=== PATIENT | female | born 1945 | race Caucasian/White ===

== ENCOUNTER 2016-08-30 07:23 | Day surgery (SDC) | payer MEDICARE, SELFPAY ==
[~2016-08-30] VITALS: Ht 162.6 cm; Wt 101.8 kg
[2016-09-07] MEDS ORDERED: COZAAR DPS25 MG PO (12:52)
[2016-09-07] MEDS ORDERED: GLIMEPIRIDE4 MG PO (12:52)
[2016-09-07] MEDS ORDERED: MONTELUKAST SOD10 MG PO (12:52)
[2016-09-07] MEDS ORDERED: ZYRTEC DPS10 MG PO (12:53)
[2016-09-07] MEDS ORDERED: FLOVENT 44MCG10.6 GM NS (12:53)
[2016-09-07] MEDS ORDERED: PROTONIX40 M2 PO (12:53)
[2016-09-07] MEDS ORDERED: LYRICA150 MG PO (12:54)
[2016-09-07] MEDS ORDERED: ULTRAM DPS50 MG PO (12:54)
[2016-09-07] MEDS ORDERED: CYMBALTA DPS60 MG PO (12:54)
[2016-09-07] MEDS ORDERED: TYLENOL ARTHRI650 MG PO (12:55)
[2016-09-07] MEDS ORDERED: MULTIVITAMINS1 EAC1 PO (12:55)
[2016-09-07] MEDS ORDERED: VITAMIN D31000 UNIT PO (12:56)
[2016-09-07] MEDS ORDERED: CALCIUM 600 +1 EAC6 PO (12:57)
[2016-09-07] MEDS ORDERED: NITROSTAT0.4 MG SL (12:57)
[2016-09-07] MEDS ORDERED: ASPIR 8181 MG PO (12:57)
[2016-09-07] MEDS ORDERED: IMODIUM DPS2 MG PO (12:57)
[2016-09-07] MEDS ORDERED: COLACE-DPS100 MG PO (12:58)
[2016-09-07] MEDS ORDERED: CELEXA DPS20 MG PO (12:58)
[2016-09-07] MEDS ORDERED: PROVENTIL2.5 MG/3 M IH (12:58)
[2016-09-07] MEDS ORDERED: MILK OF MAGNESI10 ML PO (12:59)
[2016-09-07] MEDS ORDERED: SENOKOT S1 TAB PO (12:59)
[2016-09-07] MEDS ORDERED: PERCOCET 5-3251 EACH PO (12:59)
[2016-09-07] MEDS ORDERED: VALIUM5 MG PO (13:00)
[2016-09-23] MEDS ORDERED: SINGULAIR10 MG PO (11:54)
[2016-09-23] MEDS ORDERED: COZAAR DPS25 MG PO (11:54)
[2016-09-23] MEDS ORDERED: AMARYL4 MG PO (11:54)
[2016-09-23] MEDS ORDERED: DULOXETINE PO (11:54)
[2016-09-23] MEDS ORDERED: SENOKOT S1 TAB PO (11:55)
[2016-09-23] MEDS ORDERED: TESSALON PERLE100 M1 PO (11:55)
[2016-09-23] MEDS ORDERED: MOBIC15 MG PO (11:55)
[2016-09-23] MEDS ORDERED: BACITRACIN--O.0.9 GM TP (11:56)
[2016-09-23] MEDS ORDERED: IMODIUM DPS2 MG PO (11:56)
[2016-09-23] MEDS ORDERED: LYRICA150 MG PO (11:57)
[2016-09-23] MEDS ORDERED: PROAIR HFA8.5 GM IH (11:57)
[2016-09-23] MEDS ORDERED: NORCO 5-325 TA1 EACH PO (11:58)
[2016-09-23] MEDS ORDERED: CIPROFLOXACIN500 M1 PO (11:59)
== END 2016-08-30 10:50 | disposition home or self-care (01) ==
LOC: UNDOADMIN 07:23 → SSS 07:23 → WOR 07:23 → EDSTATUS 08:17 → SSS 10:50
DX: M48.02 Spinal stenosis, cervical region (principal); Z53.8 Procedure and treatment not carried out for other reasons; J45.909 Unspecified asthma, uncomplicated; I25.2 Old myocardial infarction; I10 Essential (primary) hypertension; I25.10 Atherosclerotic heart disease of native coronary artery without angina pectoris; K21.9 Gastro-esophageal reflux disease without esophagitis; G47.30 Sleep apnea, unspecified; E66.9 Obesity, unspecified; E11.9 Type 2 diabetes mellitus without complications; Z88.5 Allergy status to narcotic agent; Z88.8 Allergy status to other drugs, medicaments and biological substances; Z90.710 Acquired absence of both cervix and uterus; Z95.1 Presence of aortocoronary bypass graft; Z79.899 Other long term (current) drug therapy

== ENCOUNTER 2016-09-03 08:56 | Inpatient (IN) | payer MEDICARE, SELFPAY ==
[~2016-09-03] VITALS: Ht 162.6 cm; Wt 100.5 kg
--- NOTE | ~2016-09-03 | DS ---
ADMIT: 09/03/2016 RM/LOC: 508 [facility] MR#: [id number] [facility]#: [id number] 2620 [facility] [address] [place] [address] CHAYITO SIFUENTES [address] [place] [address] General Discharge Summary SEX: F AGE: 71 : 1945 ADMISSION DATE: 09/03/2016 DISCHARGE DATE: 09/06/2016 REASON FOR ADMISSION: Congenital cervical spinal stenosis. PROCEDURE: Posterior cervical laminectomy and fusion at cervical 3 through 7. HOSPITAL COURSE: Ms. Sifuentes tolerated her procedure well. Postoperatively, she was taken to the med/surg floor for monitoring and care. She did refuse removal of her Mccarty catheter due to her pain. Postop day #1, she did agree to have her Mccarty catheter removed. She was awake and alert. She was moving all extremities x4 with increased strength and her foundry process engineer was 4+/5. Her vital signs were stable. Her incision was clean, dry, and intact. Her MARCELA drain was patent with serosanguineous drainage. She did work with Physical Therapy and Occupational Therapy and tolerated this quite well. Postop day #2, she was awake and alert. She was afebrile and her vital signs were stable. She was moving all extremities x4 with 5/5 strength. Her wound was clean, dry, and intact. Her MARCELA drain was removed without difficulty. Postop day #3, she had no complaints. Her vital signs were stable. She was awake, alert, and oriented x4. She was moving all extremities x4 with 5/5 strength. Her incision was clean, dry, and intact and no hematoma or cerebrospinal fluid accumulation was noted. She was ambulating, urinating, and defecating per her norm, and was requesting discharge home. DISCHARGE CONDITION: Good. MEDICATIONS: 1. Colace 100 mg p.o. b.i.d. 2. Milk of magnesia 10 mL p.o. q.a.m. 3. Senokot one tab p.o. b.i.d. 4. Imodium 2 mg p.o. q.6 hours p.r.n. 5. Percocet 5 one to two p.o. q.4 hours p.r.n. 6. Tylenol 650 mg p.o. q.4 hours p.r.n. 7. Valium 5 mg one to two p.o. q.8 hours p.r.n. 8. Glimepiride 4 mg daily. 9. Montelukast 10 mg daily. 10.Losartan 25 mg daily. 11.Pantoprazole 40 mg daily. 12.Cetirizine 10 mg daily. 13.Fluticasone 50 mcg two sprays daily. 14.Lyrica 150 mg b.i.d. 15.Duloxetine 60 mg b.i.d. 16.Tramadol 50 mg daily. 17.Multivitamin daily. 18.Vitamin D3 of 5000 units daily. 19.Calcium with vitamin D two tablets b.i.d. 20.Nitrostat 0.4 mg q.5 x 3 p.r.n. 21.Aspirin 81 mg daily. 22.Celexa 20 mg daily. ADMIT: 09/03/2016 RM/LOC: 508 [facility] MR#: [id number] [address] [address] [facility] [place] [address] General Discharge Summary SEX: F AGE: 71 : 1945 23.Albuterol nebulizer q.i.d. p.r.n. 24.Ventolin inhaler two puffs q.4 hours p.r.n. DISCHARGE INSTRUCTIONS: Per Dr. Nazario: She can have a diabetic diet. She may shower, she should not take any tub baths, she should pat her incision dry. She should not lift anything greater than 15 pounds. She should not take any NSAIDs. She should not drive until she is seen in clinic. She should wear her cervical collar at all times when out of bed. She may remove the collar to shower. She will call if she has any questions or concerns including neurological worsening, signs or symptoms of infection, or any other issues. FOLLOWUP: She will follow up with Sanjana in clinic in 2 weeks. DISPOSITION: She was discharged home. Total [id number] time for the discharge planning care and coordination was 30 minutes. Sanjana Marti APRN / Sabino Nazario MD / jason JOB #: [id number] CC: Sabino Nazario MD, Attending Physician Harry Goff MD, Family Physician
--- NOTE | 2016-09-06 07:36 | OR ---
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 PROCEDURE: 1. Cervical laminectomy in an en block fashion with wide laminectomy and foraminotomy for decompression at cervical C3-C4, C4-C5, C5-C6, and C6- C7. 2. Posterior lateral mass screw placement at cervical C3-C4, C5-C6, and C7 utilizing [employer] instrumentation with segmental hardware. 3. [place] of autograft through same incision with morcellation and reimplantation to the posterolateral recesses for posterolateral arthrodesis cervical C3-C4, C4-C5, C5-C6, and C6-C7. 4. Intraoperative use of fluoroscopy with physician interpretation of film. 5. Intraoperative neuromonitoring with no change from baseline at the beginning of the case. EMERGENCY DEPARTMENT: Sanjana Marti APRN. Ms. Marti assisted with suction and retraction, and closure at the end of the case. DESCRIPTION OF PROCEDURE: After gaining informed consent, the patient was taken to the operative theater, and placed under general endotracheal anesthesia in a supine position and turned prone on a Christopher table. All pressure points were purposely padded prior to performing the procedure. She was in the Stuart insulation board head saw operator and very cautiously clamped to the table under 80 pounds of pressure. A time-out was utilized to ascertain the correct site and side of surgery as well as other pertinent patient historical information. Counts obtained at the beginning and at the end of the case with no change betwixt to 2. Antibiotics were given within 1 hour of incision. The posterior neck in a longitudinal fashion was incised. This was then taken down through the nuchal fascia, subperiosteally dissecting off the bifida spinous processes, lamina, and out over the lateral masses at cervical C3, C4, C5, C6, and C7 being cautious not to interrupt the cervical C2-C3 joint space nor the cervical C7 thoracic T1 joint space. Once this was completed, attention was turned to the instrumentation. A 1 mm inferomedial to the geographic center of the lateral masses at cervical C3, C4, C5, C6, and C7 was decorticated and then hand-drilled to 12 mm sounding this and ensuring bony anatomy. Once this was completed at the aforementioned levels, vancomycin powder coated screws were then implanted. There was no sign of complication at this point. ADMIT: 09/03/2016 RM/LOC: 508 [facility] MR#: [id number] [address] [place], [place] [id number] [place], [place] [address] [address] Operative/Delivery Room Report SEX: F AGE: 71 : 1945 The high-speed drill was then used to drill out the laminofacet junction and drill into the facets area for the paetl-hole foraminotomy component, doing this very widely, longitudinally C3, C4, C5, C6 and down to C6-C7 taken off C7 as well. This was done bilaterally and this was then able to be removed in an en bloc fashion for morcellation and reimplantation later. Pristine hemostasis was obtained. The rods and carmita set screws and cross connectors were then implanted with no sign of complication. The morcellated autograft was placed in the posterolateral area after decortication both at the facets as well as laterally to allow for fusion substrate. Once this was completed, further hemostasis was obtained. A MARCELA drain was daylighted out and the wound was closed with simple running 0 Ethibond in the nuchal fascia, simple inverted interrupted 2-0 Vicryl in the hypodermic tissue and simple running Monocryl on the skin. COMPLICATIONS: None. ESTIMATED BLOOD LOSS: Charted. SPECIMEN: None. DISPOSITION: Extubated and taken to postanesthesia care unit. Sabino Nazario MD/ jason JOB #: [id number] CC: Sabino Nazario, Attending Physician Harry Goff, Family Physician
[2016-09-07] MEDS ORDERED: COZAAR DPS25 MG PO (12:52)
[2016-09-07] MEDS ORDERED: GLIMEPIRIDE4 MG PO (12:52)
[2016-09-07] MEDS ORDERED: MONTELUKAST SOD10 MG PO (12:52)
[2016-09-07] MEDS ORDERED: ZYRTEC DPS10 MG PO (12:53)
[2016-09-07] MEDS ORDERED: PROTONIX40 M2 PO (12:53)
[2016-09-07] MEDS ORDERED: FLOVENT 44MCG10.6 GM NS (12:53)
[2016-09-07] MEDS ORDERED: CYMBALTA DPS60 MG PO (12:54)
[2016-09-07] MEDS ORDERED: LYRICA150 MG PO (12:54)
[2016-09-07] MEDS ORDERED: ULTRAM DPS50 MG PO (12:54)
[2016-09-07] MEDS ORDERED: TYLENOL ARTHRI650 MG PO (12:55)
[2016-09-07] MEDS ORDERED: MULTIVITAMINS1 EAC1 PO (12:55)
[2016-09-07] MEDS ORDERED: VITAMIN D31000 UNIT PO (12:56)
[2016-09-07] MEDS ORDERED: IMODIUM DPS2 MG PO (12:57)
[2016-09-07] MEDS ORDERED: CALCIUM 600 +1 EAC6 PO (12:57)
[2016-09-07] MEDS ORDERED: NITROSTAT0.4 MG SL (12:57)
[2016-09-07] MEDS ORDERED: ASPIR 8181 MG PO (12:57)
[2016-09-07] MEDS ORDERED: COLACE-DPS100 MG PO (12:58)
[2016-09-07] MEDS ORDERED: CELEXA DPS20 MG PO (12:58)
[2016-09-07] MEDS ORDERED: PROVENTIL2.5 MG/3 M IH (12:58)
[2016-09-07] MEDS ORDERED: PERCOCET 5-3251 EACH PO (12:59)
[2016-09-07] MEDS ORDERED: MILK OF MAGNESI10 ML PO (12:59)
[2016-09-07] MEDS ORDERED: SENOKOT S1 TAB PO (12:59)
[2016-09-07] MEDS ORDERED: VALIUM5 MG PO (13:00)
[2016-09-23] MEDS ORDERED: SINGULAIR10 MG PO (11:54)
[2016-09-23] MEDS ORDERED: DULOXETINE PO (11:54)
[2016-09-23] MEDS ORDERED: COZAAR DPS25 MG PO (11:54)
[2016-09-23] MEDS ORDERED: AMARYL4 MG PO (11:54)
[2016-09-23] MEDS ORDERED: MOBIC15 MG PO (11:55)
[2016-09-23] MEDS ORDERED: SENOKOT S1 TAB PO (11:55)
[2016-09-23] MEDS ORDERED: TESSALON PERLE100 M1 PO (11:55)
[2016-09-23] MEDS ORDERED: IMODIUM DPS2 MG PO (11:56)
[2016-09-23] MEDS ORDERED: BACITRACIN--O.0.9 GM TP (11:56)
[2016-09-23] MEDS ORDERED: LYRICA150 MG PO (11:57)
[2016-09-23] MEDS ORDERED: PROAIR HFA8.5 GM IH (11:57)
[2016-09-23] MEDS ORDERED: NORCO 5-325 TA1 EACH PO (11:58)
[2016-09-23] MEDS ORDERED: CIPROFLOXACIN500 M1 PO (11:59)
== END 2016-09-06 17:15 | disposition home or self-care (01) | DRG 473 ==
LOC: 5MS 08:56 → WOR 08:56 → 5MS 13:48
PROVIDERS: ADMIT Neurological Surgery
PROC: 0RG2071 Fusion of 2 or more Cervical Vertebral Joints with Autologous Tissue Substitute, Posterior Approach, Posterior Column, Open Approach (ICD-10-PCS; principal; 2016-09-03)
DX: M47.12 Other spondylosis with myelopathy, cervical region (principal); E11.9 Type 2 diabetes mellitus without complications; I10 Essential (primary) hypertension; J45.909 Unspecified asthma, uncomplicated; I25.10 Atherosclerotic heart disease of native coronary artery without angina pectoris; K21.9 Gastro-esophageal reflux disease without esophagitis; M79.7 Fibromyalgia; E66.9 Obesity, unspecified; Z68.38 Body mass index [BMI] 38.0-38.9, adult; K58.9 Irritable bowel syndrome, unspecified; M47.816 Spondylosis without myelopathy or radiculopathy, lumbar region; G47.33 Obstructive sleep apnea (adult) (pediatric); M19.90 Unspecified osteoarthritis, unspecified site; E55.9 Vitamin D deficiency, unspecified; Z79.82 Long term (current) use of aspirin; Z95.5 Presence of coronary angioplasty implant and graft; Z79.84 Long term (current) use of oral hypoglycemic drugs

== ENCOUNTER 2016-09-13 12:15 | Observation (INO) | payer MEDICARE, SELFPAY ==
[~2016-09-13] VITALS: Ht 162.6 cm; Wt 100.0 kg
--- NOTE | ~2016-09-13 | ER ---
ADMIT: 09/13/2016 RM/LOC: 504 [facility] MR#: [id number] 2620 [facility] [address] [place], [place] [address] [facility] [address] [place] [address] Emergency Room Report SEX: F AGE: 71 : 1945 DATE: 09/13/2016 HISTORY OF PRESENT ILLNESS: A 71-year-old white female coming in after falling. She had a C3-C7 fusion on 09/03/2016. Re-x-ray of her neck shows a C6- C7 lamina fracture nondisplaced. The fusion is intact. At this time, I did speak with Dr. Drummond, and we are going to continue her collar. She has an appointment with Aravind on . She also is neurologically intact. She also had a laceration that was repaired on her right ear, we repaired with Dermabond. Family here explained. We are backing off on some of her medication. Pain medications that she was getting just a little bit, I think she is sleepy with this as described by the family. She is to try her pain medicine, 1 Percocet every 3 hours instead of the 2 every 6. We will see if that works for backing off on her Valium just a little bit, maybe just at bedtime 5, also other help as well. CONDITION ON DISCHARGE: Fair. Jersey Carver MD/ jason JOB #: [id number] CC: Harry Goff MD, Attending Physician Harry Goff MD, Family Physician Sabino Nazario MD
[~2016-09-13 12:15] MED LIST: ASPIR 8181 MG PO; CALCIUM 600 +1 EAC6 PO; CELEXA DPS20 MG PO; COLACE-DPS100 MG PO; COZAAR DPS25 MG PO; CYMBALTA DPS60 MG PO; FLOVENT 44MCG10.6 GM NS; GLIMEPIRIDE4 MG PO; IMODIUM DPS2 MG PO; LYRICA150 MG PO; MILK OF MAGNESI10 ML PO; MONTELUKAST SOD10 MG PO; MULTIVITAMINS1 EAC1 PO; NITROSTAT0.4 MG SL; PERCOCET 5-3251 EACH PO; PROTONIX40 M2 PO; PROVENTIL2.5 MG/3 M IH; SENOKOT S1 TAB PO; TYLENOL ARTHRI650 MG PO; ULTRAM DPS50 MG PO; VALIUM5 MG PO; VITAMIN D31000 UNIT PO; ZYRTEC DPS10 MG PO
--- NOTE | 2016-09-15 15:17 | HP ---
ADMIT: 09/13/2016 RM/LOC: 504 [facility] MR#: [id number] [address] [address] [facility] [address] [place] [address] History and Physical SEX: F AGE: 71 : 1945 DATE OF SERVICE: CHIEF COMPLAINT: Fall, neck pain. HISTORY OF PRESENT ILLNESS: The patient is a 71-year-old female, who recently had neck surgery, cervical fusion at the end of August here. She was at home, had recently had an escalation of her pain medications and Valium. She subsequently fell today, struck her head, gashed her ear, hurt her neck more, presented to the emergency room. The patient otherwise states she has been feeling on and off chills feeling. No rigors per se. No fevers. No new shortness of breath. No chest pain. No nausea or vomiting. Just felt very tired and with a lot of pain recently. No new numbness, tingling, or weakness in extremities. PAST MEDICAL HISTORY: 1. Coronary artery disease. 2. Chronic fibromyalgia. 3. Diabetes type 2, controlled with diet. 4. GERD. 5. Insomnia. 6. IBS. 7. Neuropathy. 8. Osteoarthritis. 9. Obstructive sleep apnea, refusing to wear CPAP. 10.Osteopenia. 11.Chronic shoulder pain. 12.Asthma. 13.Hypertension. MEDICATIONS: Please see list for full details, but she is on: 1. Cymbalta. 2. Glimepiride. 3. Losartan. 4. Montelukast. 5. Meloxicam. 6. Benzonatate. 7. Oxycodone. 8. Docusate. 9. Loperamide. 10.Bacitracin. 11.Diazepam. 12.ProAir. 13.Lyrica. ALLERGIES: SHE IS ALLERGIC TO CIPRO AND MACROBID WELL MORPHINE. FAMILY HISTORY: Significant for mother with Alzheimer's, father with prostate cancer. ADMIT: 09/13/2016 RM/LOC: 504 [facility] MR#: [id number] [address] [address] [facility] [address] [place] [address] History and Physical SEX: F AGE: 71 : 1945 SOCIAL HISTORY: She is a former smoker. Lives at home alone. REVIEW OF SYSTEMS: As per HPI. Otherwise, completely reviewed and negative. PHYSICAL EXAMINATION: VITAL SIGNS: Temperature 99.0, pulse 71, respiratory rate 18, blood pressure 126/68, O2 saturation 95% on 2 L. GENERAL: She is alert and oriented x3, in no acute distress, pleasant. Resting comfortably in bed at this time. HEENT: Normocephalic, atraumatic other than her right ear has a large gash on it and swollen. Pupils are equal bilaterally. No icterus. Dry mucous membranes. NECK: No lymphadenopathy. She has a trach collar on. Trachea midline. LUNGS: Clear to auscultation bilaterally anteriorly. Diminished at bases bilaterally. No rhonchi noted. HEART: Regular rate and rhythm. No murmurs, rubs, or gallops. ABDOMEN: Soft, nontender, nondistended. Bowel sounds present. EXTREMITIES: No cyanosis, clubbing, or edema. MUSCULOSKELETAL: 5/5 strength in all 4 extremities. SKIN: She has no rashes noted. PSYCHIATRIC: She has normal affect. Conversational. LABORATORY AND X-RAY DATA: Creatinine is 0.8, white count 8.6, hemoglobin 12.6, blood glucose 121. Her UA is positive for nitrites and leukocytes. An x-ray has not been done. CT scan of her cervical neck in short shows a nondisplaced fracture of her C7 vertebrae. ASSESSMENT: 1. Cervical C7 fracture. 2. Recent cervical fusion. ADMIT: 09/13/2016 RM/LOC: 504 [facility] MR#: [id number] [address] [address] [facility] [address] [place] [address] History and Physical SEX: F AGE: 71 : 1945 3. Urinary tract infection. 4. Hypertension. 5. Chronic pain. 6. Hypoxia. 7. Obstructive sleep apnea. PLAN: At this point in time, we will best feed her hypoxia. Further, we will get a chest x-ray. We will treat her UTI with oral Bactrim. She will have a PT/OT work with her. Try to get her reasonable pain control without being over sedate. I think she needs placement at this time for ongoing rehab given all of the issues going on with her. We will have Social Work see her for this. Harry Goff MD/ jason JOB #: [id number] CC: Harry Goff, Attending Physician Harry Goff, Family Physician
--- NOTE | 2016-09-17 08:39 | DS ---
ADMIT: 09/13/2016 RM/LOC: 504 [facility] MR#: [id number] [address] [address] [facility] [address] [place] [address] Discharge Summary SEX: F AGE: 71 : 1945 ADMISSION DATE: 09/13/2016 DISCHARGE DATE: 09/14/2016 CONSULTATIONS: None. PROCEDURES: None. FINAL DIAGNOSES: 1. Fall with nondisplaced C7 cervical fracture. 2. Hypertension. 3. Recent cervical fusion. 4. Fibromyalgia. 5. History of coronary artery disease. 6. Diabetes type 2, on oral agents. 7. Gastroesophageal reflux disease. 8. IBS (Irritable bowel syndrome). 9. Neuropathy. 10.Obstructive sleep apnea, refusing to wear CPAP (continuous positive airway pressure). 11.Hypoxia, likely secondary to obstructive sleep apnea. 12.UTI (urinary tract infection). REASON FOR ADMISSION: The patient is a 71-year-old female who fell at home. Had recently had a cervical fusion. She hurt her neck. Lacerated her ear. Was admitted for further stabilization. HOSPITAL COURSE: The patient was admitted. Adjusted her pain medications. Cut them down. Looks like she was overmedicated. Started on medication for UTI. She felt safe and stable but not strong enough to go home. Arrangements were made for custodial. She was then transferred to custodial care. Improved. Neurosurgery had been consulted in the emergency room and they instructed her to wear a collar at all times until sees Dr. Nazario later this week and these were the instructions at discharge. DISCHARGE INSTRUCTIONS: She will discharge over to custodial facility. Discharge medications are per the MAR, please look at them for full details as I reviewed them all. She will follow up with Dr. Nazario as previously planned. Follow up with me in 7-10 days, on September 22 it looks like. Harry J Goff, MD/ armeng JOB #: [id number] CC: Harry Goff MD, Attending Physician Harry Goff MD, Family Physician
--- NOTE | 2016-09-17 12:33 | ER ---
ADMIT: 09/13/2016 RM/LOC: 504 [facility] MR#: [id number] [address] [address] [facility] [address] [place] [address] Emergency Room Report SEX: F AGE: 71 : 1945 DATE: 09/13/2016 ADDENDUM: A 71-year-old white female coming in with neck pain. She did fall. Please refer to my previous dictation. She also has COPD, chronic pain. Every time we get her up, she is hypoxic, then she complains of pain that is not being easily resolved at home. She cannot really get up and around taking care of herself. She has been out maybe 10 days from her surgery. I spoke with Dr. Goff. We are going to admit her observation and have social service place her tomorrow. CONDITION ON DISCHARGE: Fair. Jersey Carver MD/ jason JOB #: [id number] CC: Harry Goff MD, Attending Physician Harry Goff MD, Family Physician
[2016-09-23] MEDS ORDERED: AMARYL4 MG PO (11:54)
[2016-09-23] MEDS ORDERED: SINGULAIR10 MG PO (11:54)
[2016-09-23] MEDS ORDERED: DULOXETINE PO (11:54)
[2016-09-23] MEDS ORDERED: COZAAR DPS25 MG PO (11:54)
[2016-09-23] MEDS ORDERED: TESSALON PERLE100 M1 PO (11:55)
[2016-09-23] MEDS ORDERED: SENOKOT S1 TAB PO (11:55)
[2016-09-23] MEDS ORDERED: MOBIC15 MG PO (11:55)
[2016-09-23] MEDS ORDERED: IMODIUM DPS2 MG PO (11:56)
[2016-09-23] MEDS ORDERED: BACITRACIN--O.0.9 GM TP (11:56)
[2016-09-23] MEDS ORDERED: LYRICA150 MG PO (11:57)
[2016-09-23] MEDS ORDERED: PROAIR HFA8.5 GM IH (11:57)
[2016-09-23] MEDS ORDERED: NORCO 5-325 TA1 EACH PO (11:58)
[2016-09-23] MEDS ORDERED: CIPROFLOXACIN500 M1 PO (11:59)
== END 2016-09-14 15:05 ==
LOC: ER 12:15 → 5MS 17:05
PROVIDERS: ADMIT Internal Medicine
DX: S12.601A Unspecified nondisplaced fracture of seventh cervical vertebra, initial encounter for closed fracture (principal); I10 Essential (primary) hypertension; E11.40 Type 2 diabetes mellitus with diabetic neuropathy, unspecified; I25.10 Atherosclerotic heart disease of native coronary artery without angina pectoris; M79.7 Fibromyalgia; N39.0 Urinary tract infection, site not specified; K21.9 Gastro-esophageal reflux disease without esophagitis; G47.00 Insomnia, unspecified; M19.90 Unspecified osteoarthritis, unspecified site; G47.33 Obstructive sleep apnea (adult) (pediatric); J45.909 Unspecified asthma, uncomplicated; M85.80 Other specified disorders of bone density and structure, unspecified site; Z88.1 Allergy status to other antibiotic agents; Z88.5 Allergy status to narcotic agent; Z79.899 Other long term (current) drug therapy; Z87.891 Personal history of nicotine dependence; W19.XXXA Unspecified fall, initial encounter; Z98.890 Other specified postprocedural states

== ENCOUNTER 2016-09-14 14:16 | Inpatient (IN) | payer MEDICARE ==
[~2016-09-14] VITALS: Ht 162.6 cm; Wt 99.0 kg
--- NOTE | 2016-09-22 14:52 | NUR ---
PATIENT NOTE CHAYITO RECEIVED D/C TO HOME ORDERS TODAY AT HER DR. ORTIZ'S APPOINTMENT. THERAPY GOAL DATE IS 10/14, BUT CHAYITO ALONG WITH THERAPY AND NURSING DO NOT FEEL SHE NEEDS THIS AMOUNT OF TIME AND AGREE WITH THE D/C ORDERS. CHAYITO WILL CONTINUE HER PHYSICAL THERAPY ON AN OUTPT. BASIS AT [facility]. SHE HAS HER OWN WALKER AT HOME. SHE CAME TO US WITH OXYGEN AND SHE CURRENTLY IS NOT NEEDING IT. SHE DOES LIVE WITH HER EX-, NIC AND HE WILL TRANSPORT HER TO AND FROM THERAPY. CHAYITO DID REMAIN [employer] SKILLED COVERAGE HERE WITH PHYSICAL AND OCCUPATIONAL THERAPY THE SKILLED SERVICES. SHE REMAINS ALERT AND ORIENTED AND VOICES NO CONCERNS WITH HER CARE OR STAY. I WISHED HER WELL AT HOME AND THEY ARE AWARE THAT THEY CAN CALL WITH QUESTIONS.
[2016-09-23] MEDS ORDERED: DULOXETINE PO (11:54)
[2016-09-23] MEDS ORDERED: AMARYL4 MG PO (11:54)
[2016-09-23] MEDS ORDERED: SINGULAIR10 MG PO (11:54)
[2016-09-23] MEDS ORDERED: COZAAR DPS25 MG PO (11:54)
[2016-09-23] MEDS ORDERED: SENOKOT S1 TAB PO (11:55)
[2016-09-23] MEDS ORDERED: TESSALON PERLE100 M1 PO (11:55)
[2016-09-23] MEDS ORDERED: MOBIC15 MG PO (11:55)
[2016-09-23] MEDS ORDERED: IMODIUM DPS2 MG PO (11:56)
[2016-09-23] MEDS ORDERED: BACITRACIN--O.0.9 GM TP (11:56)
[2016-09-23] MEDS ORDERED: PROAIR HFA8.5 GM IH (11:57)
[2016-09-23] MEDS ORDERED: LYRICA150 MG PO (11:57)
[2016-09-23] MEDS ORDERED: NORCO 5-325 TA1 EACH PO (11:58)
[2016-09-23] MEDS ORDERED: CIPROFLOXACIN500 M1 PO (11:59)
== END 2016-09-22 15:00 | disposition home or self-care (01) | DRG 560 ==
LOC: SNU 14:16
PROVIDERS: ADMIT Internal Medicine
PROC: F08Z4ZZ Home Management Treatment (ICD-10-PCS; principal; 2016-09-14)
PROC: F07Z9ZZ Gait Training/Functional Ambulation Treatment (ICD-10-PCS; principal; 2016-09-14)
DX: S12.601D Unspecified nondisplaced fracture of seventh cervical vertebra, subsequent encounter for fracture with routine healing (principal); N39.0 Urinary tract infection, site not specified; E11.40 Type 2 diabetes mellitus with diabetic neuropathy, unspecified; W18.30XD Fall on same level, unspecified, subsequent encounter; J44.9 Chronic obstructive pulmonary disease, unspecified; R09.02 Hypoxemia; I25.10 Atherosclerotic heart disease of native coronary artery without angina pectoris; M79.7 Fibromyalgia; G89.29 Other chronic pain; E11.9 Type 2 diabetes mellitus without complications; K21.9 Gastro-esophageal reflux disease without esophagitis; G47.00 Insomnia, unspecified; K58.9 Irritable bowel syndrome, unspecified; M19.90 Unspecified osteoarthritis, unspecified site; G47.33 Obstructive sleep apnea (adult) (pediatric); J45.909 Unspecified asthma, uncomplicated; M85.80 Other specified disorders of bone density and structure, unspecified site; I10 Essential (primary) hypertension; Z98.1 Arthrodesis status